=== PATIENT | male | born 1990 | race African-American/Black ===

== ENCOUNTER 2019-10-18 22:01 | Emergency (ER) | payer OTHER ==
[~2019-10-18] VITALS: Ht 167.6 cm; Wt 64.0 kg
[2019-10-18 22:34] LABS: HEMATOCRIT 59.6 % (42.0-52.0); HEMOGLOBIN 18.9 gm/dL (14.0-18.0); MCH 27.7 pg (26.0-34.0); MCHC 31.7 g/dL (28.0-37.0); MCV 87.3 fL (80.0-100.0); PLATELET COUNT 286 thou/uL (150-400); RBC 6.82 mil/uL (4.50-6.00); RDW 13.8 % (10.5-14.5); WBC 19.3 thou/uL (4.0-11.0)
[2019-10-18 22:36] LABS: CALCIUM 9.8 mg/dL (8.5-10.1); CREATININE 1.7 mg/dL (0.7-1.3); MAGNESIUM 2.6 mg/dL (1.8-2.4); POTASSIUM 4.9 mmol/L (3.5-5.1)
[2019-10-18 23:25] LABS: AMP/METHAMP Negative (Negative); BARBITURATES Negative (Negative); BENZODIAZEPINES Negative (Negative); COCAINE Negative (Negative); METHADONE Negative (Negative); OPIATES Negative (Negative); PCP Negative (Negative)
[2019-10-18 23:40] LABS: ABSOLUTE NEUTROPHILS 8.1 thou/uL (1.4-8.2)
[2019-10-18 23:41] LABS: PLATELET ESTIMATE NORMAL
[2019-10-18] MEDS ORDERED: KEPPRA 500 MG500 MG PO (23:50)
[2019-10-19 00:30] VITALS: BP 119/85
[2019-10-19] MEDS ORDERED: NEURONTIN100 MG PO (00:38)
--- NOTE | 2019-10-19 10:05 | EKG ---
[address] [address] ELECTROCARDIOGRAM REPORT Name: ROBERT CURRAN IKECINDI Room #: DEP [facility]#: [id number] Admission: 10/18/19 Attend Phys: Discharge: 10/19/19 Date of : 88 Report #: [id number] THIS REPORT FOR: //name// [facility] ED Test Date: 2019-10-18 Test Time: 22:32:11 Pat Name: ROBERT CURRAN Department: Room: Gender: Digital Marketing Specialist: [facility] 1990 Requested By: Constantin Jones Order Number: [id number] MD: Prince Arana Measurements Intervals [place] Rate: 102 P: 68 SC: 132 QRS: 70 QRSD: 79 T: 26 QT: 342 QTc: 446 Interpretive Statements Sinus tachycardia No significant abnormality No previous ECG available for comparison Electronically Signed On 10-19-2019 10:05:22 [employer] by Prince Arana [email or web address] <ELECTRONICALLY SIGNED> By: Prince Arana MD, [facility] 10/19/19 [id number] Prince Arana MD, FACC /EPI
== END 2019-10-19 00:53 | disposition home or self-care (01) ==
LOC: ER 22:01
PROVIDERS: Emergency Medicine
DX: R56.9 Unspecified convulsions (principal); M81.0 Age-related osteoporosis without current pathological fracture